=== PATIENT | male | born 1940 | race Caucasian/White ===

== ENCOUNTER 2018-06-05 01:48 | Inpatient (IN) | payer MEDICARE, OTHER ==
[2018-06-04 13:53] VITALS: BP 157/87
[2018-06-05] VITALS (14 sets, daily range): BP systolic 123–174; BP diastolic 73–107
[~2018-06-05] VITALS: Ht 170.2 cm; Wt 64.9 kg
[~2018-06-05 01:48] MED LIST: ALB18R INH; ALLO-2 PO; CALC1TAB32 PO; CYAN1TAB68 PO; FERR-53 PO; FLUT1DIS28 IH; LACT1CAP12 PO; LEVO75TA73 PO; LEVO88TA45 PO; OXYC-865 PO; UBID100C48 PO; VITAMIN B1 PO; ceFAZolin(*) 2GM/D5W 50ML 50 ML IVPB ONE
[2018-06-05] MEDS ORDERED: fentaNYL CITR 100 MCG/2 ML AMP ONE ×3 (06:54→12:11)
[2018-06-05] MEDS ORDERED: PROPOFOL EMUL(*) 10MG/ML 20 ML 20 ML ONE ×2 (06:55→11:35)
[2018-06-05] MEDS ORDERED: LIDOCAINE MPF 1% 5 ML VIAL ONE (06:55)
[2018-06-05] MEDS ORDERED: ONDANSETRON 4 MG/2 ML VIAL ONE (06:55)
[2018-06-05] MEDS ORDERED: NS 0.9% 20 ML SDV 20 ML ONE (08:43)
[2018-06-05] MEDS ORDERED: REMIFENTANIL HCL 1 MG VIAL ONE (08:51)
[2018-06-05] MEDS ORDERED: PREGABALIN 75 MG CAPSULE PO ONE (08:55)
[2018-06-05] MEDS ORDERED: NORMOSOL R SOLN(*) 1000 ML BAG 1,000 ML IV PRN (08:55)
[2018-06-05] MEDS ORDERED: MIDAZOLAM 2 MG/2 ML VIAL IVP PRN (08:55)
[2018-06-05] MEDS ORDERED: LIDOCAINE/SOD BICARB 8.4% SYR ID ONE (08:55)
[2018-06-05] MEDS ORDERED: ACETAMINOPHEN 500 MG TAB PO ONE (08:55)
[2018-06-05] MEDS ORDERED: FAMOTIDINE 20 MG TAB PO ONE (08:55)
[2018-06-05] MEDS ORDERED: ceFAZolin(*) 2GM/D5W 50ML 50 ML IVPB ONE (08:55)
[2018-06-05] MEDS ORDERED: PROPOFOL EMUL(*) 10MG/ML 20 ML 60 ML ONE (08:57)
[2018-06-05] MEDS ORDERED: SUCCINYLCHOL CHL 200MG/10ML VL ONE (09:42)
[2018-06-05] MEDS ORDERED: KETAMINE HCL 200 MG/20 ML MDV ONE (09:47)
[2018-06-05] MEDS ORDERED: ROPIVACAINE 0.2% 20 ML VIAL ONE (11:39)
[2018-06-05] MEDS ORDERED: HYDROmorphone HCL 2 MG/ML SDV IVP PRN (12:15)
[2018-06-05] MEDS ORDERED: BENZOCAINE/MENTHOL 1 EACH LOZG PO PRN (12:15)
[2018-06-05] MEDS ORDERED: BISACODYL 10 MG SUPP PR PRN (12:15)
[2018-06-05] MEDS ORDERED: ONDANSETRON 4 MG/2 ML VIAL IVP PRN (12:15)
[2018-06-05] MEDS ORDERED: LR(*) 1000 ML BAG 1,000 ML IV PRN (12:15)
[2018-06-05] MEDS ORDERED: diphenhydrAMINE 25 MG CAP PO PRN (12:15)
[2018-06-05] MEDS ORDERED: ACETAMINOPHEN 500 MG TAB PO PRN (12:15)
[2018-06-05] MEDS ORDERED: FLUSH 10 ML SYR IVP PRN (12:15)
[2018-06-05] MEDS ORDERED: MAGNESIUM HYDROXIDE* 30ML UDCP PO PRN (12:15)
[2018-06-05] MEDS ORDERED: ACETAMINOPHEN(*)1000 MG/100 ML 100 ML IVPB PRN (12:15)
[2018-06-05] MEDS: HYDROmorphone HCL 2 MG/ML SDV ONE (12:26)
[2018-06-05] MEDS ORDERED: DIAZEPAM 5 MG TAB ONE (13:11)
[2018-06-05] MEDS ORDERED: ALBUTEROL 8 GM INHALER INH PRN ×2 (14:40→15:00)
--- NOTE | 2018-06-05 14:58 | Hospitalist Consultation ---
History of Present Illness Requesting Physician Dr. Ohara Reason for Consult Medical Management Chief Complaint s/p lumbar fusion History of Present Illness He was admitted s/p lumbar fusion. The patient does have dural leak present. He is laying flat without headache, nausea or vomiting. History Problems: (1) Asthma Status: Chronic (2) Hypothyroidism Status: Chronic (3) Alcohol abuse Status: Chronic Home Meds Reported Medications Albuterol Sulfate (VENTOLIN HFA) 18 Gm Inh, 2 PUFF INH Q4-6H PRN for ASTHMA, INH 05/29/18 Lactobacillus Combo No.11 (PROBIOTIC) 1 Each Cap.sprink, 2 TAB PO QAM 05/29/18 Ubidecarenone (COQ-10) 100 Mg Capsule, 100 MG PO QDAY, CAPSULE 05/29/18 Cyanocobalamin/Folic Acid (VITAMIN A24-SPWGD ACID TABLET) 1 Each Tablet, 1 EACH PO QDAY 05/29/18 [Vitamin B1] No Conflict Check, 100 MG PO QDAY 05/29/18 Calcium Carb & Cit/Vitamin D3 (CALCIUM + D3 ER TABLET) 1 Each Tablet.er, 1 EACH PO QDAY 05/29/18 Ferrous Sulfate (FERROUS SULFATE) 325 Mg Tablet, 650 MG PO QDAY 05/29/18 Fluticasone/Salmeterol (ADVAIR 250-50 DISKUS) 1 Each Disk.w.dev, 1 EACH IH BID 05/29/18 Levothyroxine Sodium (LEVOTHYROXINE SODIUM) 75 Mcg Tablet, 75 MCG PO QDAY, TAB 05/29/18 Discontinued Reported Medications Oxycodone Hcl/Acetaminophen (PERCOCET 5-325 MG TABLET) 1 Each Tablet, 1 EACH PO Q4-6H PRN for PAIN, #60 08/25/14 Levothyroxine Sodium (LEVOTHYROXINE SODIUM) 88 Mcg Tablet, 88 MCG PO QDAY 08/21/14 Allopurinol (Allopurinol) 300 Mg Tablet, 1 TAB PO NOON 08/21/14 Allergies: Coded Allergies: Sulfa (Sulfonamide Antibiotics) (Unverified Allergy, Severe, SWELLING WITH RESP DISTRESS, 08/21/14) banana (Unverified Allergy, Severe, SWELLING WITH RESP DISTRESS., 08/21/14) monosodium glutamate (Verified Allergy, Severe, ANAPHYLAXIS, 05/29/18) Uncoded Allergies: MSG (Allergy, Severe, ANAPHYLAXIS, 05/29/18) CANTELOPE (Allergy, Unknown, 05/29/18) VOMITING Hx Smoking: Yes (1 CAN/ 2-3 WEEKS) Smoking Status: Never Smoker Exposure to Second Hand Smoke?: Yes Caffeine Intake: Coffee Caffeine/Cups Per Day: 2/day Hx Alcohol Use: Yes Alcohol Used: Liquor Hx Substance Use Disorder: No History of IV Drug Use: No Review of Systems All Systems Reviewed/Normal: Yes, Except as Noted Musculoskeletal: Pain (low back-surgery) Exam Vital Signs Vital Signs Date Time Temp Pulse Resp B/P (MAP) Pulse Ox O2 Delivery O2 Flow Rate FiO2 06/05/18 13:45 64 16 99 06/05/18 07:05 Room Air 06/05/18 07:05 97.0 143/88 (106) 06/04/18 13:53 5.0 General Appearance: Alert, Awake, No Acute Distress, Afebrile Neuro: No Gross deficits Cardiovascular: Regular Rate and Rhythm Respiratory: No Respiratory Distress, Clear to Auscultation Psych: Alert & Oriented X3, Appropriate Mood & Affect Assessment and Plan Problems: (1) S/P lumbar fusion Status: Acute Assessment & Plan: Followed by Dr. Ohara. He does have dural leak. (2) Hypothyroidism Status: Chronic Assessment & Plan: He is on chronic treatment with Levothyroxine. (3) Asthma Status: Chronic Assessment & Plan: He is on chronic treatment with Ventolin inhaler and Advair. (4) Alcohol abuse Status: Chronic Assessment & Plan: He does drink 3 drinks daily. He will be placed on CIWA assessment. Venous Thromboembolism Antithrombotics Is Pt On Any Antithrombotics?: No Prophylaxis Tx Contraindicated Pharmacological Contraindicati: Surgical Contraindication Exam Sepsis Risk: No Definite Risk MARKELL KELLY ATHLETIC EVENTS SCORER Jun 05, 2018 14:58
--- NOTE | 2018-06-05 15:12 | OPERATIVE REPORT 1 ---
EVENT DATE: June 05, 2018 SURGEON: Yemi Ohara MD ANESTHESIOLOGIST: Quincy Cleary MD ANESTHESIA: General endotracheal anesthesia. COOKER CLEANER: Geo Givens PA-C PREOPERATIVE DIAGNOSIS L4-L5 recurrent intraforaminal disk herniation with left L4 and L5 radiculopathy. POSTOPERATIVE DIAGNOSIS L4-L5 recurrent intraforaminal disk herniation with left L4 and L5 radiculopathy. PROCEDURE PERFORMED L4-L5 minimally invasive transforaminal lumbar interbody fusion. INTRAVENOUS FLUIDS 1800 mL ESTIMATED BLOOD LOSS 60 mL IMPLANTS USED 1. A 10 mm lordotic, size large titanium interbody device from [employer]. 2. Reline pedicle screws 6.5 mm x 45 mm from [employer] times four. 3. Connecting rods 5 mm x 35 mm from [employer] times two. 4. Locking caps from [employer] times four. SPECIMENS None. DRAINS None. COMPLICATIONS There was an incidental durotomy that was treated with Duragen patch and DuraSeal. DISPOSITION Post-anesthesia care unit. INDICATIONS FOR SURGERY Mr. Holliday is a 77-year-old gentleman who presented to my clinic quite some time ago with some radicular symptoms down the left leg in primarily an L5 distribution. He ultimately underwent diskectomy and had good results for quite some time. He then returned to my clinic with a return of pain not only in an L5, but also in an L4 distribution. We tried treating him with Medrol Dosepak and some injections, but had no real success. Ultimately, an MRI showed a recurrent disk herniation that was now into the foramen as well as in the lateral recess compressing the neural elements. This coupled with facet hypertrophy resulted in severe left-sided foraminal stenosis. Secondary to failure of nonsurgical treatment and ongoing pain with the above- mentioned MRI findings, we offered, and he elected to undergo left-sided approach L4-L5 minimally invasive transforaminal lumbar interbody fusion. Prior to surgery, I discussed in detail with the patient the possible risks of surgery including bleeding, infection, damage to surrounding structures, nerve root injury, persistent and/or worsening pain, need for further surgery, spinal fluid leak, meningitis, , blindness, sexual dysfunction, autonomic nervous system dysfunction, and other unforeseen medical and surgical complications. An understanding that in general spinal surgery is more predictive at improving extremity discomfort than axial spine pain was stressed. Further, understanding that revision cases such as this carry a higher incidence of potential infection, scarring, bleeding, spinal fluid leak, etc. DESCRIPTION OF PROCEDURE On the date of surgery, the patient was met in the preoperative hold area, and all questions were answered. His operative site was identified and marked by myself. He was brought in good condition to the operating room. After succumbing to anesthesia, he was positioned in the prone position on a Vadim table. All bony protuberances were well padded in the standard fashion. Preoperative antibiotics were administered according to the appropriate timing schedule. Care was taken to maintain appropriate perfusion pressures during anesthesia. At the conclusion of the procedure, the sponge and needle counts were correct times two. Final timeout was undertaken by members of the operating team to confirm correct patient, correct levels, and correct surgery. Fluoroscopy was brought into the field, and locations of pedicles at L4 and L5 were marked using a wire on the skin. The patient was prepped and draped in the standard sterile orthopedic fashion, and bilateral Eliza style incisions were made. Electrolytes was used to dissect down to the lumbodorsal fascia, which was split longitudinally. Blunt finger dissection was taken in an interval between the longissimus and multifidus muscles down to the starting points for the L4 and L5 pedicles. Fluoroscopy was brought back into the field, and Jamshidi needles were then used to cannulate the pedicles bilaterally at L4 and L5. This was accomplished by docking the needle at the 9 o'clock position on the left and the 3 o'clock position on the right in the AP plane. These were then advanced against resistance through the pedicle to a depth of 25 mm, ensuring that the tips of the needles did not cross the medial border of the pedicle shadow. Wires were then inserted into through the pedicles and into the vertebral bodies. This was repeated at L5. We then took a lateral radiograph confirming that the guidewires were in the appropriate position. We then tapped over the guidewires and tested the taps with neurophysiologic monitoring, and no evidence of bony breaching was present. We selected 45 mm screws, 6.5 mm in diameter. These were placed over the guidewires bilaterally at L4 and L5, and on the right side, these were placed with minimally invasive towers, while on the left side, they were placed with 60 mm retractor blades. We then placed the minimally invasive retractor and selected the size small medial blade. The retractor was distracted, distracting the disk space and giving us good access to the L4-L5 facet and the L4 lamina. These structures were cleared of soft tissue with the electrocautery device. I then used an osteotome to first remove the inferior articular process of L4, followed by the superior articular process of L5. As the superior articular process of L5 was removed, there was significant scarring to the dura, and an incidental durotomy occurred. We packed that area off and came to meticulous hemostasis. This allowed me access to the disk itself, and using the annulotomy knife, I was able to perform an annulotomy and use a combination of mazin, pituitary rongeurs, and curettes to perform a diskectomy of L4 and L5. This was also performed under fluoroscopic guidance to ensure that we got far enough anterior in the disk space. Once this was complete, we chose a 10 mm trial device and inserted that into the interbody space. AP and lateral x-rays were obtained that showed excellent placement of the device. The trial was then removed, and that device was selected. The device was packed with ViBone, and after packing the anterior disk space with a combination of local bone that had been run through the bone mill and demineralized bone matrix, we then inserted the interbody device under fluoroscopic guidance. Under AP and lateral views, we ensured that this was in the appropriate position and that it was rotated to sit in the correct final position in the anterior one-third of the disk space. The minimally invasive retractor was then removed, and on the screw shanks on the left side, we replaced the retractor blades with minimally invasive towers. The caliper was then used to measure for an appropriate length jd, and we ultimately selected 35 mm rods for both sides. These were passed in the standard minimally invasive fashion through the towers and seated into the tulips of the screws. Locking caps were placed and tightened bilaterally in L4, and then we performed compression across the entire construct prior to applying the locking caps at L5. Once this was completed, the final tightening device was brought up, and the locking caps were finally tightened. The towers were then removed, and final x-rays were obtained that showed excellent positioning of both the interbody and pedicle screw construct. The wound was then irrigated with copious sterile saline solution and closed in layers using interrupted suture for the deep fascia, inverted interrupted sutures for the subcutaneous tissue, and then a running subcuticular skin stitch. Sponge and needle counts were correct times two. POSTOPERATIVE CARE PLAN Mr. Holliday will remain in the hospital flat for 24 hours prior to gradually sitting him up to ensure that he has no persistent spinal fluid leak. Once he is up and walking, then Physical Therapy will evaluate him. Once he passes PT, he will be discharged home with instructions to follow up in approximately one week. TAHIR
--- NOTE | 2018-06-05 15:34 | RADIOLOGY IMAGING REPORT ---
FACILITY: [facility] PATIENT NAME: Jose F Holliday : 1940 MR: [id number] V: [id number] EXAM DATE: ORDERING PHYSICIAN: MEMO ALMANZAR TECHNOLOGIST: Location: [facility] [place] Patient: Jose F Holliday : 1940 Visit/Account:[id number] Date of Sevice: 06/05/2018 Exam type: C-ARM FLUORO 1 HR History: MIS L4-5 TRANSFORAMINAL FUSION WITH INSTRUMENTATION Comparison: None. Findings: Two portable intraoperative fluoroscopic spot views lower lumbar spine demonstrate posterior lumbar i nterbody fusion at L4-5 with bilateral pedicle screws, posterior fixation rods and intervertebral dis c spacer. The vertebral bodies appear in good anatomic alignment. The cumulative air kerma is 20.9 51. The total fluoroscopy time was one minute and 38 seconds IMPRESSION: 1. As above Report Dictated By: Dneia Nam MD at 06/05/2018 3:23 PM Report E-Signed By: Denia Nam MD at 06/05/2018 3:29 PM WSN:[email or web address]
[2018-06-05] MEDS ORDERED: DIAZEPAM 10 MG TAB PO PRN ×2 (15:40)
[2018-06-05] MEDS: ceFAZolin(*) 2GM/D5W 50ML 50 ML IVPB SCH (17:20)
[2018-06-05] MEDS: oxyCODONE HCL 5 MG CAP PO PRN (19:13)
[2018-06-05] MEDS: SALMETEROL/FLUTIC 250/50 1 INH INH SCH (20:16)
[2018-06-05] MEDS: DOCUSATE SODIUM 100 MG CAP PO SCH (20:27)
[2018-06-05] MEDS: DIAZEPAM 5 MG TAB PO PRN (21:59)
[2018-06-06] MEDS: ceFAZolin(*) 2GM/D5W 50ML 50 ML IVPB SCH ×2 (02:09→08:19)
[2018-06-06 03:13] VITALS: BP 125/70
[2018-06-06] MEDS: LEVOTHYROXINE SOD 0.075 MG TAB PO SCH (05:40)
[2018-06-06] MEDS: DIAZEPAM 5 MG TAB PO PRN ×2 (05:44→20:28)
[2018-06-06] MEDS: SALMETEROL/FLUTIC 250/50 1 INH INH SCH (06:00)
[2018-06-06 07:28] VITALS: BP 128/74
[2018-06-06] MEDS: oxyCODONE HCL 5 MG CAP PO PRN (07:42)
[2018-06-06] MEDS: DOCUSATE SODIUM 100 MG CAP PO SCH ×2 (08:19→20:28)
[2018-06-06] MEDS ORDERED: HYDR-653 PO (08:23)
[2018-06-06] MEDS ORDERED: DOCU240C84 PO (08:24)
--- NOTE | 2018-06-06 10:42 | Hospitalist Progress Note ---
Subjective Progress Notes Subjective He has no complaints this morning. He had no acute events overnight. Patient Complains of: Cardiovascular: No: Chest Pain Respiratory: No: Shortness of Breath Physical Exam Vital Signs Date Time Temp Pulse Resp B/P (MAP) Pulse Ox O2 Delivery O2 Flow Rate FiO2 06/06/18 07:49 97 Nasal Cannula 2.0 06/06/18 07:28 98.6 69 16 128/74 (92) Intake and Output 06/06/18 06:59 Intake Total 925 ml Output Total 675 ml Balance 250 ml Intake Oral 700 ml IV Total 225 ml Output Urine Total 675 ml # Voids 3 General Appearance: Alert, Awake, No Acute Distress, Afebrile Neuro: No Gross deficits, Other (still laying flat from dural leak) Cardiovascular: Regular Rate and Rhythm Respiratory: No Respiratory Distress, Clear to Auscultation Psych: Alert & Oriented X3, Appropriate Mood & Affect Assessment and Plan Problems: (1) S/P lumbar fusion Status: Acute Assessment & Plan: Followed by Dr. Ohara. He does have dural leak. (2) Hypothyroidism Status: Chronic Assessment & Plan: He is on chronic treatment with Levothyroxine. (3) Asthma Status: Chronic Assessment & Plan: He is on chronic treatment with Ventolin inhaler and Advair. (4) Alcohol abuse Status: Chronic Assessment & Plan: He does drink 3 drinks daily. He will be placed on CIWA assessment. Exam Sepsis Risk: No Definite Risk MARKELL KELLY CHILI POWDER MIXER Jun 06, 2018 10:42
[2018-06-06 11:02] VITALS: BP 119/76
[2018-06-06] MEDS: APAP/HYDROCODONE 325/5 TAB PO PRN ×2 (11:24→20:28)
[2018-06-06 13:30] VITALS: Ht 170.2 cm; Wt 64.9 kg
[2018-06-06 15:30] VITALS: BP 137/85
[2018-06-06 20:31] VITALS: BP 158/87
[2018-06-06 23:23] VITALS: BP 135/80
[2018-06-07 01:33] VITALS: BP 155/84
[2018-06-07] MEDS: SALMETEROL/FLUTIC 250/50 1 INH INH SCH ×3 (06:00→11:23)
[2018-06-07] MEDS: LEVOTHYROXINE SOD 0.075 MG TAB PO SCH (06:14)
[2018-06-07] MEDS ORDERED: DIA5 PO (08:49)
[2018-06-07 08:56] VITALS: BP 162/94
[2018-06-07] MEDS: DOCUSATE SODIUM 100 MG CAP PO SCH (08:56)
[2018-06-07] MEDS: APAP/HYDROCODONE 325/5 TAB PO PRN (08:56)
--- NOTE | 2018-06-07 09:10 | Hospitalist Progress Note ---
Subjective Progress Notes Subjective He has no complaints this morning. He had no acute events overnight. Patient Complains of: Cardiovascular: No: Chest Pain Respiratory: No: Shortness of Breath Physical Exam Vital Signs Date Time Temp Pulse Resp B/P (MAP) Pulse Ox O2 Delivery O2 Flow Rate FiO2 06/07/18 08:56 98.7 82 20 162/94 (116) 92 Nasal Cannula 2.0 l Intake and Output 06/07/18 07:00 Intake Total 320 ml Output Total 450 ml Balance -130 ml Intake Oral 320 ml Output Urine Total 450 ml # Voids 2 General Appearance: Alert, Awake, No Acute Distress, Afebrile Neuro: No Gross deficits Cardiovascular: Regular Rate and Rhythm Respiratory: No Respiratory Distress, Clear to Auscultation Psych: Alert & Oriented X3, Appropriate Mood & Affect Assessment and Plan Problems: (1) S/P lumbar fusion Status: Acute Assessment & Plan: Followed by Dr. Ohara. He does have dural leak. (2) Hypothyroidism Status: Chronic Assessment & Plan: He is on chronic treatment with Levothyroxine. (3) Asthma Status: Chronic Assessment & Plan: He is on chronic treatment with Ventolin inhaler and Advair. (4) Alcohol abuse Status: Chronic Assessment & Plan: He does drink 3 drinks daily. He was placed on CIWA assessme nt and did not require any treatment. Exam Sepsis Risk: No Definite Risk MARKELL KELLY Jun 07, 2018 09:10
== END 2018-06-07 13:15 | disposition home or self-care (01) | DRG 460 ==
LOC: OR 01:48 → MED 13:45
PROVIDERS: ADMIT Orthopaedic Surgery; ATTEND Orthopaedic Surgery
PROC: 0ST20ZZ Resection of Lumbar Vertebral Disc, Open Approach (ICD-10-PCS; 2018-06-05)
PROC: 00UT0JZ Supplement Spinal Meninges with Synthetic Substitute, Open Approach (ICD-10-PCS; 2018-06-05)
PROC: 0SG00AJ Fusion of Lumbar Vertebral Joint with Interbody Fusion Device, Posterior Approach, Anterior Column, Open Approach (ICD-10-PCS; principal; 2018-06-05 09:42)
DX: M51.16 Intervertebral disc disorders with radiculopathy, lumbar region (principal); G97.41 Accidental puncture or laceration of dura during a procedure; M1A.9XX0 Chronic gout, unspecified, without tophus (tophi); J45.909 Unspecified asthma, uncomplicated; E03.9 Hypothyroidism, unspecified; F10.10 Alcohol abuse, uncomplicated; Y65.8 Other specified misadventures during surgical and medical care; Y75.3 Surgical instruments, materials and neurological devices (including sutures) associated with adverse incidents; Z88.2 Allergy status to sulfonamides
CPT/HCPCS: 36415; 76000; 86850; 86900; 86901; 94640; 97161; C1713; C1763; J0330; J0690; J1170; J2001; J2405; J2704; J2795; J3010; J3490; J3535; J7050

== ENCOUNTER 2019-02-04 01:18 | Inpatient (IN) | payer MEDICARE, OTHER ==
[2019-02-03 16:02] LABS: INR 0.93
[~2019-02-04] VITALS: Ht 170.2 cm; Wt 66.2 kg
[2019-02-04] VITALS (12 sets, daily range): BP systolic 95–146; BP diastolic 64–89
[~2019-02-04 01:18] MED LIST changes: +DIA5 PO; +DOCU240C84 PO; +HYDR-653 PO; +PANT40TA65 PO; -ceFAZolin(*) 2GM/D5W 50ML 50 ML IVPB ONE
[2019-02-04] MEDS ORDERED: PROPOFOL EMUL(*) 10MG/ML 20 ML 20 ML ONE (07:09)
[2019-02-04] MEDS ORDERED: ONDANSETRON 4 MG/2 ML VIAL ONE (07:09)
[2019-02-04] MEDS ORDERED: LIDOCAINE MPF 1% 5 ML VIAL ONE (07:09)
[2019-02-04] MEDS ORDERED: DEXAMETHASONE SOD 4 MG/ML VIAL ONE (07:10)
[2019-02-04] MEDS ORDERED: FAMOTIDINE 20 MG TAB PO ONE (08:05)
[2019-02-04] MEDS ORDERED: fentaNYL CITR 100 MCG/2 ML AMP ONE (08:42)
[2019-02-04] MEDS ORDERED: PREGABALIN 75 MG CAPSULE PO ONE (09:15)
[2019-02-04] MEDS ORDERED: NORMOSOL R SOLN(*) 1000 ML BAG 1,000 ML IV PRN (09:15)
[2019-02-04] MEDS ORDERED: ROPIVACAINE/EPI/CLONIDINE/KET 50 ML SYRINGE INJ ONE (09:15)
[2019-02-04] MEDS ORDERED: TRANEXAMIC AC 1000 MG/10ML SDV 1,000 MG in DEXTROSE 5% 50 ML BAG 50 ML IV ONE (09:15)
[2019-02-04] MEDS ORDERED: MIDAZOLAM 2 MG/2 ML VIAL IVP PRN (09:15)
[2019-02-04] MEDS ORDERED: LIDOCAINE/SOD BICARB 8.4% SYR ID ONE (09:15)
[2019-02-04] MEDS ORDERED: BACITRACIN 50000 UNIT/VIAL 100,000 UNIT in NS 0.9% 3000 ML IRRIGATION BAG 3,000 ML IR ONE (09:15)
[2019-02-04] MEDS ORDERED: ACETAMINOPHEN 500 MG TAB PO ONE (09:15)
[2019-02-04] MEDS ORDERED: ceFAZolin(*) 2GM/D5W 50ML 50 ML IVPB ONE (09:15)
[2019-02-04] MEDS ORDERED: NS(*) 0.9% 250 ML BAG 0 ML ONE (09:21)
[2019-02-04] MEDS ORDERED: ePHEDrine 25 MG/5 ML DISP.SYR IVP ONE (09:26)
--- NOTE | 2019-02-04 11:52 | RADIOLOGY IMAGING REPORT ---
FACILITY: [facility] - [place] PATIENT NAME: Jose F Holliday : 1940 MR: [id number] V: [id number] EXAM DATE: ORDERING PHYSICIAN: MAYRA BERG TECHNOLOGIST: Location: [facility] - [place] Patient: Jose F Holliday : 1940 Visit/Account:[id number] Date of Sevice: 02/04/2019 Exam type: HIP IN OR RIGHT History: RIGHT TOTAL HIP Comparison: None. Findings: There is a trial right hip arthroplasty that appears in good anatomic alignment on this single AP vie w. IMPRESSION: 1. As above Report Dictated By: Denia Nam MD at 02/04/2019 11:31 AM Report E-Signed By: Denia Nam MD at 02/04/2019 11:45 AM WSN:[email or web address]
[2019-02-04] MEDS ORDERED: PROMETHAZINE 25 MG/ML 1 ML AMP IVP PRN (11:55)
[2019-02-04] MEDS ORDERED: MAGNESIUM CITRATE 300 ML BTL PO PRN (11:55)
[2019-02-04] MEDS ORDERED: diphenhydrAMINE 50 MG/ML VIAL IVP PRN (11:55)
[2019-02-04] MEDS ORDERED: ZOLPIDEM TARTRATE 5 MG TAB PO PRN (11:55)
[2019-02-04] MEDS ORDERED: diphenhydrAMINE 25 MG CAP PO PRN (11:55)
[2019-02-04] MEDS ORDERED: FLUSH 10 ML SYR IVP PRN (11:55)
[2019-02-04] MEDS ORDERED: HYDROmorphone HCL 2 MG/ML SDV IVP PRN (11:55)
[2019-02-04] MEDS ORDERED: BISACODYL 10 MG SUPP PR PRN (11:55)
[2019-02-04] MEDS ORDERED: ONDANSETRON 4 MG/2 ML VIAL IVP PRN (11:55)
[2019-02-04] MEDS ORDERED: oxyCODON/ACET (*)5/325MG (CII) 1 TAB TAB PO PRN (11:55)
[2019-02-04] MEDS ORDERED: LR 1000 ML BAG 1000 ML IV PRN (11:55)
[2019-02-04] MEDS ORDERED: MAGNESIUM HYDROXIDE* 30ML UDCP PO PRN (11:55)
--- NOTE | 2019-02-04 12:03 | OPERATIVE REPORT 1 ---
EVENT DATE: February 04, 2019 SURGEON: Lakhwinder Umana MD ANESTHESIOLOGIST: Geo Porrsa MD ANESTHESIA: General LMA with spinal. DRAIN TECHNICIAN: BELÉN Caicedo PREOPERATIVE DIAGNOSIS Right hip osteoarthritis. POSTOPERATIVE DIAGNOSIS Right hip osteoarthritis. PROCEDURE PERFORMED Right total hip arthroplasty. FINDINGS The patient had a significant amount of arthritic changes associated with the hip. It was amenable for total hip replacement. ESTIMATED BLOOD LOSS 150 mL. DRAINS None. COMPLICATIONS None. TOURNIQUET TIME Not applicable. IMPLANTS USED Ana 56 mm Continuum cluster-hole Trabecular Metal shell with a standard 40 neutral liner, a size 9 standard stem with a standard offset and a 40 +0 mm ceramic Biolox head. SPECIMENS None. INDICATIONS AND HISTORY This patient is a 78-year-old male who presented to my clinic for evaluation of hip pain and irritation going on for some time. His right hip was starting to give him more trouble so he wanted to ahead with right total hip arthroplasty today, February 04, 2019. The risks and benefits were discussed with the patient and informed consent was obtained at the last clinic visit. He understood the common risks associated with just surgery in general and also the risks associated with dislocation and leg length discrepancy which were specific to hips and nerve injury were also discussed with him. DESCRIPTION OF PROCEDURE The patient was brought into the operating room. He and the procedure were both verified. He was given a spinal by anesthesia and then placed supine on the operating table and induced and intubated by Anesthesia. He was then turned in the lateral decubitus position with the right hip towards the ceiling and then the right hip was prepped and draped in the usual fashion. A time-out was observed, verifying the correct patient and procedure. The standard posterior lateral incision was made over the backside of the hip. It was taken through the skin and subcutaneous tissue and then I was able to identify the IT band and into the gluteal musculature and cut that and split that apart. Once I was able to remove the trochanteric bursa in this area, I then was able to identify the short external rotators and cut the short external rotators and tag the piriformis for a later repair. I then was able to get to the capsule where I made a T-shaped incision along the capsule with the linear part high on the head. I was then able to split the capsule and then tag it for later repair. I then dislocated the hip and made the standard neck cut in accordance with the Ana System. After removing the head, I then removed some of the soft tissue around the head and was able to gain access to the acetabulum. Once on the acetabulum, I was able to place anterior and inferior retractor and then remove the labrum superiorly and then along the posterior aspect and a little bit along the anterior aspect. I was then able to place a superior retractor up in this area and then gain access to the acetabulum. I removed a couple of osteophytes that were loose and then commenced reaming once again down to the true pelvic floor. Once I did this, I reamed from a 47 [address] reamer all the way up to a 55 mm reamer and then placed a 56 cluster-hole shell in the acetabulum without any difficulty. Once I made sure that it was all the way down using the cluster holes as our guide, I was then able to place a central dome-hole peg and then three screw-hole pegs in the area since it was stable. I then put in a 40 mm liner without any difficulty. I then irrigated with copious amounts of saline, which I had throughout the case, and even used Irrisept before inserting the cup. I was then able to turn attention to the femur, where I was able to flex and internally rotate it until I got down to the part of the femur where I could put in the stem. This was done by using a box cutting osteotome followed by a canal finding reamer and then lateralizing reamer. I then commenced broaching with a [address] up to a 9. The 9 had good fit associated with it and felt like it had adequate stability so, therefore, we put on a standard head and neck and then reduced it and trialed it. During trial, there were no signs of major instability associated with it with the leg flexed and had to go over 70 degrees to dislocate with internal rotation so, therefore, this was chosen and the leg lengths appeared good clinically. Intraoperative x-rays were then taken, verifying the cup and the stem were in good position, filling the canal and that also there was good leg length concordance. There was no sign of discrepancy associated with this. I then irrigated again with copious amounts of saline, removed all the instrumentation and the trial components. I then put in the final femoral steam followed by the ceramic head and then relocated the hip and made sure everything was in good position and we were once again very stable. I then repaired the capsule using a heavy Ethibond and then repaired the piriformis through posterior drill holes in the posterior aspect of the trochanter and then closed the gluteal musculature with a #2 Quill and anesthetized the local area with the pain cocktail and then closed the skin with a 2-0 Vicryl deep in the fat and then a 2-0 Stratafix in the subcutaneous tissue and a 4-0 Monocryl in the skin. The wound was dressed with Steri-Strips, gauze, 4x4's and a soft dressing. The patient was awakened and extubated and transferred to PACU in stable condition, where she will be admitted overnight to my service. TAHIR
--- NOTE | 2019-02-04 12:20 | RADIOLOGY IMAGING REPORT ---
FACILITY: [facility] - [place] PATIENT NAME: Jose F Holliday : 1940 MR: [id number] V: [id number] EXAM DATE: ORDERING PHYSICIAN: MAYRA BERG TECHNOLOGIST: Location: [facility] Patient: Jose F Holliday : 1940 Visit/Account:[id number] Date of Sevice: 02/04/2019 PELVIS Indication: POST OP VIEW, CHECK PLACEMENT. Comparison: None. Findings: There are postoperative changes from a right total hip arthroplasty. Hardware appears in g ood alignment. IMPRESSION: Postoperative changes right total hip arthroplasty. Report Dictated By: Howard Hayden at 02/04/2019 12:09 PM Report E-Signed By: Howard Hayden at 02/04/2019 12:09 PM WSN:[email or web address]
[2019-02-04] MEDS ORDERED: APAP/HYDROCODONE 325/5 TAB PO PRN (13:55)
[2019-02-04] MEDS ORDERED: ALBUTEROL 8 GM INHALER INH PRN (15:50)
--- NOTE | 2019-02-04 16:11 | Hospitalist Consultation ---
History of Present Illness Requesting Physician Dr. Umana Reason for Consult Management of Hypothyroidism, Asthma, GERD Chief Complaint Right Total Hip Replacement History of Present Illness 78 y/o male here for a Right Total Hip Replacement from Dr. Umana. EBL was 150cc. No reported surgical complications or issues reported. He has a history positive for Asthma, Hypothyroidism, GERD, ETOH, and Smokeless Tobacco. He states he drinks 3 liquor drinks per night, with the occasional glass of wine with dinner. He states he has stopped drinking abruptly in the distant past and did experience some symptoms, but could not describe what they were. No history of DVT/PE's. He was placed on Aspirin by Dr. Umana for anticoagulation. History Problems: (1) Asthma Status: Chronic (2) Alcohol abuse Status: Chronic (3) Hypothyroidism Status: Chronic (4) GERD (gastroesophageal reflux disease) Home Meds Reported Medications Pantoprazole Sodium (PANTOPRAZOLE SODIUM) 40 Mg Tablet.dr, 40 MG PO BID, TAB.SR 01/28/19 Levothyroxine Sodium (LEVOTHYROXINE SODIUM) 88 Mcg Tablet, 88 MCG PO QDAY 01/28/19 Docusate Calcium (SURFAK) 240 Mg Capsule, 240 MG PO DAILY, #9 CAPSULE 06/06/18 Albuterol Sulfate (VENTOLIN HFA) 18 Gm Inh, 2 PUFF INH Q4-6H PRN for ASTHMA, INH 05/29/18 Lactobacillus Combo No.11 (PROBIOTIC) 1 Each Cap.sprink, 2 TAB PO QAM 05/29/18 Ubidecarenone (COQ-10) 100 Mg Capsule, 100 MG PO QDAY, CAPSULE 05/29/18 Cyanocobalamin/Folic Acid (VITAMIN M72-GYBWZ ACID TABLET) 1 Each Tablet, 1 EACH PO QDAY 05/29/18 [Vitamin B1] No Conflict Check, 100 MG PO QDAY 05/29/18 Calcium Carb & Cit/Vitamin D3 (CALCIUM + D3 ER TABLET) 1 Each Tablet.er, 1 EACH PO QDAY 05/29/18 Ferrous Sulfate (FERROUS SULFATE) 325 Mg Tablet, 650 MG PO QDAY 05/29/18 Fluticasone/Salmeterol (ADVAIR 250-50 DISKUS) 1 Each Disk.w.dev, 1 EACH IH BID 05/29/18 Discontinued Reported Medications Diazepam (VALIUM) 5 Mg Tablet, 5 MG PO Q8H PRN for SPASMS, #16 TAB 06/07/18 Hydrocodone Bit/Acetaminophen (NORCO 5-325 TABLET) 1 Each Tablet, 1-2 EACH PO Q6H PRN for PAIN, #36 TAB 06/06/18 Levothyroxine Sodium (LEVOTHYROXINE SODIUM) 75 Mcg Tablet, 75 MCG PO QDAY, TAB 05/29/18 Allergies: Coded Allergies: Sulfa (Sulfonamide Antibiotics) (Verified Allergy, Severe, SWELLING WITH RESP DISTRESS, 02/04/19) banana (Verified Allergy, Severe, SWELLING WITH RESP DISTRESS., 02/04/19) monosodium glutamate (Verified Allergy, Severe, ANAPHYLAXIS, 05/29/18) acetaminophen (Verified Adverse Reaction, Severe, DIZZINESS, 02/04/19) "Unbalanced, dizzy", pt states no reaction to Hydrocodone 06/2018 oxycodone (Verified Adverse Reaction, Severe, DIZZINESS, 02/04/19) "Unbalanced, dizzy", pt states no reaction to Hydrocodone 06/2018 Uncoded Allergies: MSG (Allergy, Severe, ANAPHYLAXIS, 05/29/18) CANTELOPE (Allergy, Unknown, 05/29/18) VOMITING Hx Smoking: Yes (1 CAN/ 2-3 WEEKS) Smoking Status: Never Smoker Exposure to Second Hand Smoke?: Yes Caffeine Intake: Coffee Caffeine/Cups Per Day: 2/day Hx Alcohol Use: Yes Hx Substance Use Disorder: No Review of Systems All Systems Reviewed/Normal: Yes, Except as Noted Neurological: Other (Left leg still numb from surgery. ) Musculoskeletal: Pain (Surgical/Incisional pain) Exam Vital Signs Vital Signs Date Time Temp Pulse Resp B/P (MAP) Pulse Ox O2 Delivery O2 Flow Rate FiO2 02/04/19 14:30 61 136/67 (90) 97 Nasal Cannula 2.0 02/04/19 13:00 18 02/04/19 13:00 97.6 General Appearance: Alert, Awake, No Acute Distress Cardiovascular: Regular Rate and Rhythm Respiratory: No Respiratory Distress, Clear to Auscultation GI: Abd Soft and Non-Tender Psych: Alert & Oriented X3, Appropriate Mood & Affect Assessment and Plan Problems: (1) Status post right hip replacement Assessment & Plan: Surgical replacement by Dr. Umana on 02/04. EBL 150cc No surgical issues or complications reported. He has been placed on Aspirin for anticoagulation. Pt will be following. (2) Asthma Status: Chronic Assessment & Plan: Chronic management with Advair and Ventolin will be continued. (3) Alcohol abuse Status: Chronic Assessment & Plan: He reports he drinks 3 liquor drinks per night, and the occasional glass of wine with dinner. He reports he has stopped abruptly in the past and did experience some symptoms, but was unable to describe them. Will monitor for signs of detox and institute CIWA protocol if needed. (4) Hypothyroidism Status: Chronic Assessment & Plan: Chronic management with Levothyroxine will be continued. (5) GERD (gastroesophageal reflux disease) Assessment & Plan: Chronic management with Protonix will be continued. Venous Thromboembolism Antithrombotics Is Pt On Any Antithrombotics?: No IGOR WOO Feb 04, 2019 16:11
[2019-02-04] MEDS ORDERED: NS(*) 0.9% 250 ML BAG 250 ML IV SCH (16:50)
[2019-02-04] MEDS: ceFAZolin(*) 1 GM VIAL 1 GM in NS(*) 0.9% 100 ML MINI-BAG 100 ML IVPB SCH (17:30)
--- NOTE | 2019-02-04 17:41 | NUR ---
Physical Therapy Impression PT eval completed followed by transfer trng and ambulation to/from BR. Pt would benefit from further trng to address stairs prior to possible d/c home tomorrow. Physical Therapy Goals 1. Pt to ambulate x 150' with least restrictive device and SBA/Modified indep 2. Pt to be Mod indep/SBA for supine to/from sit transfers 3. Pt to be Mod indep/SBA for sit to/from stand transfers 4. Pt to kate up/down 8 steps with rail and SBA/Mod indep 5. Pt to demo compliance with posterior hip precautions. Patient's Goals
[2019-02-04] MEDS: SALMETEROL/FLUTIC 250/50 1 INH INH SCH (17:49)
[2019-02-04] MEDS ORDERED: ASPIRIN 325 MG TAB PO SCH (21:00)
[2019-02-04] MEDS: PANTOPRAZOLE SOD 40 MG TABEC PO SCH (21:12)
[2019-02-05] MEDS: ceFAZolin(*) 1 GM VIAL 1 GM in NS(*) 0.9% 100 ML MINI-BAG 100 ML IVPB SCH ×2 (00:27→08:42)
[2019-02-05 04:15] VITALS: BP 107/68
[2019-02-05] MEDS ORDERED: LEVOTHYROXINE SOD 0.088 MG TAB PO SCH (06:00)
[2019-02-05] MEDS: SALMETEROL/FLUTIC 250/50 1 INH INH SCH (06:11)
[2019-02-05 06:52] VITALS: BP 115/59
[2019-02-05] MEDS: PANTOPRAZOLE SOD 40 MG TABEC PO SCH (08:42)
[2019-02-05 09:33] VITALS: Ht 170.2 cm; Wt 66.2 kg
[2019-02-05] MEDS ORDERED: ASPI-757 PO (09:42)
[2019-02-05] MEDS ORDERED: HYDR-653 PO (09:53)
--- NOTE | 2019-02-05 10:25 | NUR ---
Occupational Therapy Impression Pt alert, agreeable to OT tx. Recalling 3/3 posterior hip precautions with v/c's. Improved adherence to precautions and tx progressed. Independent bed mobility in/out. Mod (I) LB dressing. Independent UB dressing. Mod (I) ambulation with RW. SpO2 WNL on room air. Discussed AE needs, pt educated on where to obtain a environmental services technician/sock aid/toilet riser if desired. Has a shower chair. Pt has met all skilled OT goals and presents with no further questions/concerns at this time. Occupational Therapy Goals Patient's Goal
--- NOTE | 2019-02-05 11:21 | Hospitalist Progress Note ---
Subjective Progress Notes Subjective He was admitted s/p hip replacement. He had no acute events overnight. Patient Complains of: Cardiovascular: No: Chest Pain Respiratory: No: Shortness of Breath Physical Exam Vital Signs Date Time Temp Pulse Resp B/P (MAP) Pulse Ox O2 Delivery O2 Flow Rate FiO2 02/05/19 06:52 97.7 68 16 115/59 (77) 97 Nasal Cannula 1.0 Intake and Output 02/05/19 01:03 Intake Total 1940 ml Balance 1940 ml Intake Oral 340 ml IV Total 1600 ml # Voids 2 General Appearance: Alert, Awake, No Acute Distress, Afebrile Neuro: No Gross deficits Cardiovascular: Regular Rate and Rhythm Respiratory: No Respiratory Distress, Clear to Auscultation Psych: Alert & Oriented X3, Appropriate Mood & Affect Result Diagram: 02/05/19 0516 Assessment and Plan Problems: (1) Status post right hip replacement Assessment & Plan: Surgical replacement by Dr. Umana on 02/04. EBL 150cc No surgical issues or complications reported. He has been placed on Aspirin for anticoagulation. Pt will be following. (2) Asthma Status: Chronic Assessment & Plan: Chronic management with Advair and Ventolin will be continued. (3) Alcohol abuse Status: Chronic Assessment & Plan: He reports he drinks 3 liquor drinks per night, and the occasional glass of wine with dinner. He reports he has stopped abruptly in the past and did experience some symptoms, but was unable to describe them. Will monitor for signs of detox and institute CIWA protocol if needed. (4) Hypothyroidism Status: Chronic Assessment & Plan: Chronic management with Levothyroxine will be continued. (5) GERD (gastroesophageal reflux disease) Assessment & Plan: Chronic management with Protonix will be continued. Exam Sepsis Risk: No Definite Risk MARKELL KELLY Feb 05, 2019 11:21
--- NOTE | 2019-02-05 11:27 | NUR ---
Physical Therapy Impression PT goals met; from a mobility stand point pt is ready for discharge. Physical Therapy Goals 1. Pt to ambulate x 150' with least restrictive device and SBA/Modified indep 2. Pt to be Mod indep/SBA for supine to/from sit transfers 3. Pt to be Mod indep/SBA for sit to/from stand transfers 4. Pt to kate up/down 8 steps with rail and SBA/Mod indep 5. Pt to demo compliance with posterior hip precautions. Patient's Goals
== END 2019-02-05 12:15 | disposition home or self-care (01) | DRG 470 ==
LOC: OR 01:18 → MED 13:00
PROVIDERS: ADMIT Orthopaedic Surgery; ATTEND Orthopaedic Surgery
PROC: 0SR902A Replacement of Right Hip Joint with Metal on Polyethylene Synthetic Substitute, Uncemented, Open Approach (ICD-10-PCS; principal; 2019-02-04 09:23)
DX: M16.11 Unilateral primary osteoarthritis, right hip (principal); K21.9 Gastro-esophageal reflux disease without esophagitis; F17.220 Nicotine dependence, chewing tobacco, uncomplicated; Z88.2 Allergy status to sulfonamides; Z88.5 Allergy status to narcotic agent; E03.9 Hypothyroidism, unspecified; R13.10 Dysphagia, unspecified; J44.9 Chronic obstructive pulmonary disease, unspecified; Z88.8 Allergy status to other drugs, medicaments and biological substances
CPT/HCPCS: 36415; 72170; 85014; 85018; 85610; 86850; 86900; 86901; 94640; 97161; 97165; J0690; J1100; J2001; J2250; J2405; J2704; J3010; J7050; J7060